=== PATIENT | female | born 1955 | race Caucasian/White ===

== ENCOUNTER → 2023-04-12 13:25 | Outpatient (REF) | payer MEDICARE, SELFPAY | LOC: HWRAD 13:25 | PROVIDERS: ATTENDING PHYSICIAN Obstetrics & Gynecology; FAMILY PHYSICIAN Internal Medicine | DX: M85.89 Other specified disorders of bone density and structure, multiple sites (principal) | CPT/HCPCS: 77080 ==

== ENCOUNTER → 2024-05-29 09:32 | Outpatient (REF) | payer MEDICARE, SELFPAY | LOC: HWWDC 09:32 | PROVIDERS: ATTENDING PHYSICIAN Obstetrics & Gynecology; FAMILY PHYSICIAN Internal Medicine | DX: Z12.31 Encounter for screening mammogram for malignant neoplasm of breast (principal) | CPT/HCPCS: 77063; 77067 ==